=== PATIENT | male | born 1980 ===

== ENCOUNTER 2018-03-04 20:30 | Emergency (ER) | payer OTHER ==
[2018-03-04 21:33] VITALS: BP 114/71; PULSE 62; RESP 18; TEMP 98.1; O2SAT 97
[2018-03-04] MEDS ORDERED: Lidocaine 1% 20 MG/2 ML PF AMP ONE (22:16)
[2018-03-04] MEDS ORDERED: Tdap Vaccine 0.5 ml Vial (10-64 yrs) IM ONE ×2 (23:00→23:18)
--- NOTE | 2018-03-04 23:02 | ED PDOC ---
HPI: Skin/Bite Injury Time Seen by Provider: 03/04/18 21:43 Chief Complaint (Nursing): Abnormal Skin Integrity Chief Complaint (Provider): Laceration of the left forearm History Per: Patient History/Exam Limitations: no limitations Onset/Duration Of Symptoms: Mins Current Symptoms Are (Timing): Still Present Additional Complaint(s): 37 yo male with no medical problems presents with laceration of the left forearm. PT was at work and a bag broke. When patient saw flying materials he covered his face with his left arm resulting in 2 laceration. No active bleeding. Unknown last tetanus. PT was seen at [facility] and sent to the Er for suturing. Past Medical History Reviewed: Historical Data, Nursing Documentation, Vital Signs Vital Signs: Last Vital Signs Temp 98.1 F 03/04/18 21:29 Pulse 62 03/04/18 21:29 Resp 18 03/04/18 21:29 BP 114/71 03/04/18 21:29 Pulse Ox 97 03/04/18 23:04 - Medical History PMH: No Chronic Diseases - Surgical History Surgical History: No Surg Hx - Family History Family History: States: No Known Family Hx - Living Arrangements Living Arrangements: With Family - Social History Current smoker - smoking cessation education provided: No Alcohol: Occasional - Allergies Allergies/Adverse Reactions: Allergies Allergy/AdvReac Type Severity Reaction Status Date / Time No Known Allergies Allergy Verified 03/04/18 21:28 Review of Systems ROS Statement: Except As Marked, All Systems Reviewed And Found Negative Constitutional: Negative for: Fever, Chills Skin: Positive for: Other Physical Exam - Reviewed Nursing Documentation Reviewed: Yes Vital Signs Reviewed: Yes - Physical Exam Appears: Positive for: Well, Non-toxic, No Acute Distress Head Exam: Positive for: ATRAUMATIC, NORMAL INSPECTION, NORMOCEPHALIC Skin: Positive for: Warm. Negative for: Normal Color (1.5 and 2 cm lacerations on the left lateral forearm ) Eye Exam: Positive for: Normal appearance ENT: Positive for: Normal ENT Inspection Neck: Positive for: Normal, Painless ROM Respiratory: Negative for: Accessory Muscle Use, Respiratory Distress Back: Positive for: Normal Inspection Extremity: Positive for: Normal ROM. Negative for: Tenderness, Deformity, Swelling Neurologic/Psych: Positive for: Alert - ECG O2 Sat by Pulse Oximetry: 97 Medical Decision Making Medical Decision Making: Antibiotic ointment and dressing applied. Disposition - Clinical Impression Clinical Impression: Forearm laceration, Tetanus toxoid vaccination administered at current visit - Disposition Disposition: Routine/Home Disposition Time: 23:01 Condition: GOOD Additional Instructions: Do not get wet for 48 hours. Keep clean and dry with antibiotic ointment twice a day. Suture removal in 10 - 14 days. Instructions: Laceration Repair Forms: [employer] (Albanian) Print Language: LATVIAN Laceration - Laceration Repair Prox forearm Wound Length (In cm): 2 Description Of Wound: Linear Anesthesia: Lidocaine 1% Wound Examination: Irrigated With Saline, No FB With Wound Exploration Wound Closure: Suture Suture Technique And Material Used: Interrupted (#3), Nylon (4.0) Wound Complexity: Simple Distal forearm Wound Length (In cm): 1.5 Description Of Wound: Linear Anesthesia: Lidocaine 1% Wound Examination: Irrigated With Saline, No FB With Wound Exploration Suture Technique And Material Used: Interrupted (#2), Nylon (4.0) Wound Complexity: Simple
== END 2018-03-04 23:21 | disposition home or self-care (01) ==
LOC: H.ER 20:30
DX: S51.812A Laceration without foreign body of left forearm, initial encounter (principal); W22.8XXA Striking against or struck by other objects, initial encounter; Y99.0 Civilian activity done for income or pay